=== PATIENT | female | born 1950 | race Caucasian/White ===

== ENCOUNTER → 2020-06-17 | Outpatient (CLI) | payer MEDICARE | LOC: RAD 12:45 | PROVIDERS: ATTEND Family Medicine | DX: Z12.31 Encounter for screening mammogram for malignant neoplasm of breast (principal); Z90.10 Acquired absence of unspecified breast and nipple | CPT/HCPCS: 77063; 77067 ==

== ENCOUNTER → 2021-07-09 | Outpatient (CLI) | payer MEDICARE ==
--- NOTE | 2021-07-09 15:13 | Diagnostic Imaging Report ---
Bilateral diagnostic mammogram. INDICATION: Right breast carcinoma This study was compared to the prior exams of 06/17/2020, 06/30/2018 and 06/22/2017. At this time, there are no current complaints. The patient did undergo a lumpectomy on the right for carcinoma in 2008. The postsurgical changes in the right retroareolar region seen previously are again evident and no different. There is no sign of recurrent malignancy. The fibroglandular tissue in both breasts is heterogeneously dense. This does limit the sensitivity of this exam. Overall, there has been no significant change. Stereotactic clips are again seen in the retroareolar region of the left breast. There is no primary or secondary sign of malignancy identified. IMPRESSION: The postsurgical changes involving the right breast seen previously appear stable. There is no evidence for malignancy involving either breast. ACR BI-RADS Category 1: Negative. Result letter will be mailed to the patient. Note: At least 10% of breast cancer is not imaged by mammography. Dictated by: Dictated on workstation # [id number]
== END ==
LOC: RAD 14:15
PROVIDERS: ATTEND Family Medicine
DX: Z85.3 Personal history of malignant neoplasm of breast (principal); Z98.890 Other specified postprocedural states
CPT/HCPCS: 77066; G0279; 77062

== ENCOUNTER → 2021-07-28 | Outpatient (CLI) | payer MEDICARE ==
--- NOTE | 2021-07-28 16:28 | Diagnostic Imaging Report ---
INDICATION: Postmenopausal screening COMPARISON: Baseline FINDINGS: AP Spine L1-L4: [BMD (g/cm2): 1.169] [T-Score: -0.3] [Z-Score: 1.7] [BMD Previous: na] [BMD % Change: na] LT Hip Neck: [BMD (g/cm2): 1.044] [T-Score: 0.0] [Z-Score: 2.0] LT Hip Total: [BMD (g/cm2):1.073] [T-Score:0.5] [Z-Score: 2.2] [BMD Previous: na] [BMD % Change: na] RT Hip Neck: [BMD (g/cm2):1.063] [T-Score:0.2] [Z-Score:2.1] RT Hip Total: [BMD (g/cm2):1.068] [T-score:0.5] [Z-Score:2.2] [BMD Previous:na] [BMD % Change:na] *Indicates significant change from prior examination based on 95% confidence level. World Health Organization criteria for BMD interpretation classify patients as Normal (T-score at or above -1.0), Osteopenic (T-score between -1.0 and -2.5) or Osteoporotic (T-score at or below -2.5). LIMITATIONS AND MODIFICATION: None. FRACTURE RISK (FRAX SCORE): The ten year probability of (%): Major Osteoporotic Fracture: [na] Hip Fracture: [na] IMPRESSION: 1. Normal bone mineral density. 2. Baseline examination. 3. See below National Osteoporosis Foundation guidelines on when to potentially initiate pharmacologic therapy. Based on the National Osteoporosis Foundation Guidelines, pharmacologic treatment should be initiated in any of the following, unless clinical conditions suggest otherwise: * Any patient with prior fragility fracture of the hip or vertebrae. A spine fracture indicates 5X risk for subsequent spine fracture and 2X risk for subsequent hip fracture. * Osteoporosis (T-score <-2.5). * Postmenopausal women and men age 50 and older with low bone mass/osteopenia (T-score between -1.0 and -2.5) by DXA and 10-year major osteoporotic fracture greater than 20% or a 10-year probability of hip fracture greater than 3%. These fracture risks are supplied above in the FRAX score, if applicable. * Clinician judgement and/or patient preferences may indicate treatment for people with 10-year fracture probabilities above or below these levels. Dictated by: Dictated on workstation # [id number]
== END ==
LOC: RAD 13:00
PROVIDERS: ATTEND Family Medicine
DX: Z13.820 Encounter for screening for osteoporosis (principal); Z85.3 Personal history of malignant neoplasm of breast; Z92.21 Personal history of antineoplastic chemotherapy; Z78.0 Asymptomatic menopausal state
CPT/HCPCS: 77080

== ENCOUNTER → 2021-10-12 | Outpatient (CLI) | payer MEDICARE ==
--- NOTE | 2021-10-12 15:29 | Diagnostic Imaging Report ---
INDICATION: Fall on 09/05/2021 and development of a hard right buttock mass. FINDINGS: There is a complex solid and cystic somewhat lobulated appearing mass in the gluteal region correlating with the palpable area. There is a pulsatile component with color Doppler imaging along one margin of this. 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 Would consider contrasted CT exam for further detail. Dictated by: Dictated on workstation # [id number]
== END ==
LOC: RAD 14:00
PROVIDERS: ATTEND Family Medicine
DX: R22.41 Localized swelling, mass and lump, right lower limb (principal); W19.XXXA Unspecified fall, initial encounter
CPT/HCPCS: 76881

== ENCOUNTER → 2022-07-16 | Outpatient (CLI) | payer MEDICARE ==
--- NOTE | 2022-07-16 14:44 | Diagnostic Imaging Report ---
Indication: Patient reportedly presented for a breast lump but denies a breast lump today. Correlation is made with prior mammograms 07/09/2021 and 06/17/2020. 2-D and 3-D bilateral diagnostic mammography was performed with CAD. Both breasts are heterogeneously dense, limiting the sensitivity of mammography. Post therapeutic changes in the right breast appears stable. There are marker clips in the left breast. No discrete mass or malignant-appearing microcalcifications are seen. Axillae are unremarkable. IMPRESSION: BI-RADS Category 2 No mammographic features suspicious for malignancy are identified. ACR BI-RADS Category 2: Benign findings. Result letter will be mailed to the patient. Note: At least 10% of breast cancer is not imaged by mammography. Dictated by: Dictated on workstation # [id number]
== END ==
LOC: RAD 12:58
PROVIDERS: ATTEND Family Medicine
DX: N63.0 Unspecified lump in unspecified breast (principal)
CPT/HCPCS: 77066; G0279; 77062